=== PATIENT | female | born 1980 | race Caucasian/White ===

== ENCOUNTER 2017-02-21 14:53 | Emergency (ER) | payer OTHER ==
[2017-02-21 16:19] VITALS: BP 133/78
--- NOTE | 2017-02-21 17:49 | UC ---
Respiratory Complaint HPI - History of Current Complaint Chief Complaint: UCGeneralIllness Stated Complaint: CHEST CONGESTION Time Seen by Provider: 02/21/17 17:35 Hx Obtained From: Patient Hx Last Menstrual Period: LAST BCP MID DEC, NO PERIOD SINCE. ?: No Onset/Duration: Sudden Onset, Lasting Weeks, Still Present Severity Initially: Moderate Severity Currently: Moderate Character: Cough: Productive - yellow brown yucky thick stuff, improved. Associated Signs And Symptoms: Positive: Dyspnea, Fever, Nasal Congestion Related History: Seasonal Allergies - Risk Factors Pulmonary Embolism Risk Factors: Oral Contraceptives Cardiac Risk Factors: Negative Pseudomonas Risk Factors: Negative Tuberculosis Risk Factors: Negative - Allergies/Home Medications Allergies/Adverse Reactions: Allergies Allergy/AdvReac Type Severity Reaction Status Date / Time No Known Allergies Allergy Verified 02/21/17 16:19 Home Medications: Home Medications Dextromethorphan-Phenylephrine [Daytime Cold & Flu Relief 10-5-325 mg] 2 cap PO ONCE PRN 02/21/17 [History Confirmed 02/21/17] Pseudoephedrine TAB* [Sudafed TAB*] 30 mg PO Q6H PRN 02/21/17 [History Confirmed 02/21/17] PMH/Surg Hx/FS Hx/Imm Hx Cardiovascular History Of: Denies: Hypertension Respiratory History Of: Denies: Asthma - Surgical History Surgical History: Yes Surgery Procedure, Year, and Place: C-SECT. CHOLECYSTECTOMY - Family History Known Family History: Positive: Cardiac Disease, Hypertension, Diabetes - Social History Occupation: Employed Full-time - dairy farm Lives: With Family Alcohol Use: None Substance Use Type: None Smoking Status (MU): Never Smoked Tobacco Have You Smoked in the Last Year: No Review of Systems Constitutional: Fever, Fatigue ENT: Ear Ache - right ear. Respiratory: Cough All Other Systems Reviewed And Are Negative: Yes Physical Exam Triage Information Reviewed: Yes Appearance: No Pain Distress, Well-Nourished, Ill-Appearing Vital Signs: Initial Vital Signs Temp 99.5 F 02/21/17 16:11 Pulse 95 02/21/17 16:11 Resp 16 02/21/17 16:11 BP 133/78 02/21/17 16:11 Pulse Ox 100 02/21/17 16:11 Vital Signs Reviewed: Yes Eyes: Positive: Conjunctiva Clear ENT: Positive: Pharynx normal, Nasal congestion, TMs normal Neck exam: Normal Respiratory: Positive: Wheezing - expiratory wheeze with coughing. Cardiovascular Exam: Normal Musculoskeletal Exam: Normal Neurological Exam: Normal Psychological Exam: Normal Skin Exam: Normal UC Diagnostic Evaluation - Laboratory O2 Sat by Pulse Oximetry: 100 Respiratory Course/Dx - Differential Dx/Diagnosis Differential Diagnosis/HQI/PQRI: Asthma, Lower Resp Infection, Sinusitis Provider Diagnoses: Acute URI. Acute sinusitis. Acute bronchospasm Discharge - Discharge Plan Condition: Stable Disposition: HOME Prescriptions: Amoxicillin (*) [Amoxicillin 875 MG (*)] 875 mg PO BID #20 tab predniSONE TAB* [Deltasone TAB*] 20 mg PO DAILY #18 tab Additional Instructions: NASAL SPRAYS AND DROPS: Afrin in the PUMP/ MIST bottle. Tilt your head down and look at the floor while doing a strong sniff with the spray. Decongestant nasal sprays and drops often give dramatic relief from congestion. They are often recommended for patients with sinus infection to assist with sinus drainage. Persons with high blood pressure should consult the doctor before using these nasal sprays. Afrin and Varun-Synephrine are common [id number] preparations. They should not be used for more than five days, as "rebound" congestion can occur - - the congestion flares as the drug wears off. A way of dealing with this rebound congestion problem is to medicate only one nostril each time, allowing the other nostril to recover from the medicine' s effects. When you no longer need the drug during the day, spray only one nostril each night. This helps you sleep well without severe rebound congestion. Call the doctor if you develop severe headache, palpitations, or chest pain. RAP Index SINUS RINSE: CHECK OUT AT [employer] Saline nasal wash helps with mucous, allergies and congestion. It can be used up to twice a day or only as needed. Use lukewarm tap water. It does not have to be sterilized or distilled water. Do 1/3 on each side and snort out of both nostrils. Repeat the process with 1/6 of the bottle on each side with snorting in between to finish the solution in the bottle
[2017-02-21] MEDS ORDERED: Amoxicillin PO (*) 500 MG CAP PO ONE (18:04)
[2017-02-21] MEDS ORDERED: Albuterol HFA INHALER* 8 gm MDI INH ONE (18:04)
[2017-02-21] MEDS ORDERED: predniSONE TAB* 20 MG PO ONE (18:04)
== END 2017-02-21 18:29 | disposition home or self-care (01) ==
LOC: UCCORT 14:53
DX: J06.9 Acute upper respiratory infection, unspecified (principal); J01.90 Acute sinusitis, unspecified; J98.01 Acute bronchospasm; Z90.49 Acquired absence of other specified parts of digestive tract
CPT/HCPCS: 99213; A9270-GY; G0463; J7512

== ENCOUNTER 2018-08-10 14:02 | Emergency (ER) | payer OTHER ==
[2018-08-10 14:48] VITALS: BP 117/74
--- NOTE | 2018-08-10 15:30 | UC ---
Skin Complaint HPI - HPI Summary HPI Summary: Pt c/o of "pimples on chin" that has "gotten worse" and now has hard "lump" under chin. Pt states she "has been under a lot of stress recently" and has been "breaking out more frequently". - History of Current Complaint Chief Complaint: UCSkin Time Seen by Provider: 08/10/18 15:09 Stated Complaint: THROAT COMP. Hx Obtained From: Patient Hx Last Menstrual Period: 08/03 with pause then return of menstral bleeding ?: No Onset/Duration: Gradual Onset, Lasting Days, Still Present Skin Exposure Onset/Duration: Days Ago Timing: Constant Onset Severity: Mild Current Severity: Mild Pain Intensity: 2 Location: Face Character: Pruritus, Redness, Raised, Painful Aggravating Factor(s): Touch Alleviating Factor(s): Nothing Associated Signs & Symptoms: Positive: Tenderness - Allergy/Home Medications Allergies/Adverse Reactions: Allergies Allergy/AdvReac Type Severity Reaction Status Date / Time environmental Allergy Congestion Uncoded 08/10/18 14:48 Home Medications: Home Medications Albuterol HFA INHALER* [Ventolin HFA Inhaler*] 2 puff INH Q6H PRN 08/10/18 [ History Confirmed 08/10/18] Fluticasone HFA 110 mcg(NF) [Flovent HFA 110 mcg(NF)] 2 puff INH BID 08/10/18 [ History Confirmed 08/10/18] Inhaler Taken Flovent Prn 2 puff INH DAILY PRN 08/10/18 [History Confirmed 08/10] Montelukast Sodium TAB* [Singulair 5 mg TAB*] 5 mg PO BEDTIME 08/10/18 [History Confirmed 08/10/18] Review of Systems Constitutional: Negative Skin: Other - acne Eyes: Negative ENT: Negative Respiratory: Negative Cardiovascular: Negative Gastrointestinal: Negative Genitourinary: Negative Motor: Negative Neurovascular: Negative Musculoskeletal: Negative Neurological: Negative Psychological: Negative Is Patient Immunocompromised?: No All Other Systems Reviewed And Are Negative: Yes PMH/Surg Hx/FS Hx/Imm Hx Previously Healthy: Yes - Surgical History Surgical History: Yes Surgery Procedure, Year, and Place: C-SECT. CHOLECYSTECTOMY - Family History Known Family History: Positive: Cardiac Disease, Hypertension, Diabetes - Social History Occupation: Employed Full-time Lives: With Family Alcohol Use: None Substance Use Type: None Smoking Status (MU): Never Smoked Tobacco Have You Smoked in the Last Year: No Physical Exam Triage Information Reviewed: Yes Appearance: Well-Appearing Vital Signs: Initial Vital Signs Temp 98.3 F 08/10/18 14:36 Pulse 76 08/10/18 14:36 Resp 12 08/10/18 14:36 BP 117/74 08/10/18 14:36 Pulse Ox 100 08/10/18 14:36 Vital Signs Reviewed: Yes Eye Exam: Normal ENT Exam: Normal Dental Exam: Normal Neck: Positive: Tenderness @ - submental lymph node, Enlarged Nodes @ - enlarged submental lymph node Respiratory Exam: Normal Cardiovascular Exam: Normal Abdominal Exam: Normal Musculoskeletal Exam: Normal Neurological Exam: Normal Psychological Exam: Normal Skin Exam: Other - scabs on right lower chin Course/Dx - Differential Diagnoses - Skin Complaint Differential Diagnoses: Impetigo - Diagnoses Provider Diagnoses: infected wound chin Discharge - Sign-Out/Discharge Documenting (check all that apply): Patient Departure All imaging exams completed and their final reports reviewed: No Studies - Discharge Plan Condition: Stable Disposition: HOME Prescriptions: DOXYcycline CAP(*) [DOXYcycline 100MG CAP(*)] 100 mg PO Q12H #20 cap Mupirocin 2% OINT* [Bactroban 2 % Oint*] 1 applic TOPICAL Q12H #1 tube Patient Education Materials: Wound Infection (ED) Referrals: Mary Lou Baptiste [Primary Care Provider] - If Needed - Billing Disposition and Condition Condition: STABLE Disposition: Home
== END 2018-08-10 15:39 | disposition home or self-care (01) ==
LOC: UCCORT 14:02
DX: L08.9 Local infection of the skin and subcutaneous tissue, unspecified (principal)
CPT/HCPCS: 87651; 99212; G0463